=== PATIENT | male | born 1960 | race Caucasian/White ===

== ENCOUNTER 2019-12-03 10:51 | Emergency (ER) | payer BC ==
[~2019-12-03] VITALS: Ht 170.2 cm; Wt 73.5 kg
[2019-12-03 11:06] VITALS: BP_SYST 132
[2019-12-03] MEDS ORDERED: DIPH-TET-PERTUS Vaccine 0.5 ML VIAL (ADACEL) I.M. ONE (11:15)
[2019-12-03] MEDS ORDERED: LIDOCAINE MPF 1% 50 MG/5 ML AMP INJ ONE (11:15)
[2019-12-03] MEDS ORDERED: LIDOCAINE/EPI 2% 1:100000 20 ML VIAL INJ ONE (11:31)
[2019-12-03] MEDS ORDERED: LIDOCAINE 2%, 20 ML MDV ONE (11:46)
[2019-12-03] MEDS ORDERED: BACITRACIN 1 GM OINT TP ONE (12:32)
[2019-12-03 12:42] VITALS: BP_SYST 132
== END 2019-12-03 12:42 | disposition home or self-care (01) ==
LOC: SED 10:51
DX: S61.214A Laceration without foreign body of right ring finger without damage to nail, initial encounter (principal); E11.9 Type 2 diabetes mellitus without complications; K74.69 Other cirrhosis of liver; W26.8XXA Contact with other sharp object(s), not elsewhere classified, initial encounter; Y93.89 Activity, other specified; Y92.89 Other specified places as the place of occurrence of the external cause; Y99.8 Other external cause status
CPT/HCPCS: 12002; 90471; 90715; 99283; J2001